=== PATIENT | male | born 1970 | race African-American/Black ===

== ENCOUNTER 2017-11-13 11:33 | Emergency (ER) | payer BC ==
[~2017-11-13] VITALS: Ht 167.6 cm; Wt 93.9 kg
[~2017-11-13 11:33] MED LIST: FLEXERIL5 MG PO; MOTRIN600 MG PO; NAPROSYN500 MG PO; NOHOMEMEDS; NORCO 5/3251 TABLET PO
[2017-11-13] MEDS ORDERED: LIDODERM 5% P1 PATCH TD (13:37)
[2017-11-13] MEDS ORDERED: PREDNISONE50 MG PO (13:37)
[2017-11-13] MEDS ORDERED: NEURONTIN300 MG PO (13:37)
[2017-11-13 13:49] VITALS: BP 129/98
== END 2017-11-13 13:50 | disposition home or self-care (01) ==
LOC: EME 11:33
DX: M54.9 Dorsalgia, unspecified (principal); G89.29 Other chronic pain; M41.9 Scoliosis, unspecified; Z87.891 Personal history of nicotine dependence; Z91.040 Latex allergy status
CPT/HCPCS: 99281; 99283

== ENCOUNTER 2018-03-05 18:57 | Emergency (ER) | payer OTHER ==
[~2018-03-05] VITALS: Ht 167.6 cm; Wt 86.3 kg
[~2018-03-05 18:57] MED LIST changes: +LIDODERM 5% P1 PATCH TD; +NEURONTIN300 MG PO; +PREDNISONE50 MG PO
[2018-03-05 19:00] VITALS: BP 129/87
[2018-03-05] MEDS ORDERED: NORCO 7.5/321 TABLET PO (21:20)
[2018-03-05] MEDS ORDERED: VALIUM5 MG PO (21:20)
[2018-03-05] MEDS ORDERED: MOTRIN800 MG PO (21:20)
[2018-03-05] MEDS ORDERED: PREDNISONE20 MG PO (21:20)
[2018-03-05] MEDS ORDERED: LIDODERM 5% P1 PATCH TD (21:21)
== END 2018-03-05 21:45 | disposition home or self-care (01) ==
LOC: EME 18:57
DX: M54.5 Low back pain (principal); G89.29 Other chronic pain; M25.552 Pain in left hip; E11.9 Type 2 diabetes mellitus without complications; Z91.040 Latex allergy status
CPT/HCPCS: 72100; 73502; 99281; 99284; J1100

== ENCOUNTER 2018-04-30 10:00 | Day surgery (SDC) | payer OTHER ==
[~2018-04-30] VITALS: Ht 167.6 cm; Wt 90.3 kg
[~2018-04-30 10:00] MED LIST changes: +DELTASONE20 M1 PO; +GLUCOPHAGE1000 MG PO; +GLUCOPHAGE500 MG PO; +HYDROCODON-ACE1 EAC8 PO; +LIDOCAINE700 MG TP; +MOTRIN800 MG PO; +NEURONTIN400 MG PO; +NORCO 7.5/321 TABLET PO; +PRAVACHOL20 MG PO; +PREDNISONE20 MG PO; +VALIUM5 MG PO; +ZESTRIL2.5 MG PO
[2018-04-30 10:45] LABS: HEMATOCRIT 42.6 % (38.0-50.0); HEMOGLOBIN 13.9 G/DL (12.5-16.6); MCV 87.5 FL (86-99)
[2018-04-30] MEDS ORDERED: ZOLOFT50 MG PO (10:53)
== END 2018-04-30 12:30 | disposition home or self-care (01) ==
LOC: PAIN 10:00
PROVIDERS: Anesthesiology Pain Medicine
DX: M47.816 Spondylosis without myelopathy or radiculopathy, lumbar region (principal); M48.061 Spinal stenosis, lumbar region without neurogenic claudication; M51.16 Intervertebral disc disorders with radiculopathy, lumbar region; E11.9 Type 2 diabetes mellitus without complications; Z87.891 Personal history of nicotine dependence; Z79.84 Long term (current) use of oral hypoglycemic drugs
CPT/HCPCS: 82948; 85014; 85018; 93005; J1030; J2250; S0020

== ENCOUNTER 2018-05-14 10:26 | Day surgery (SDC) | payer OTHER ==
[~2018-05-14] VITALS: Ht 167.6 cm; Wt 89.8 kg
[~2018-05-14 10:26] MED LIST changes: +ZOLOFT50 MG PO
== END 2018-05-14 11:53 | disposition home or self-care (01) ==
LOC: PAIN 10:26
PROVIDERS: Anesthesiology Pain Medicine
DX: M47.816 Spondylosis without myelopathy or radiculopathy, lumbar region (principal); M48.061 Spinal stenosis, lumbar region without neurogenic claudication; M41.9 Scoliosis, unspecified; M51.16 Intervertebral disc disorders with radiculopathy, lumbar region; E78.5 Hyperlipidemia, unspecified; E11.9 Type 2 diabetes mellitus without complications; Z79.84 Long term (current) use of oral hypoglycemic drugs; Z79.891 Long term (current) use of opiate analgesic
CPT/HCPCS: 82948; J1030; S0020